=== PATIENT | male | born 1960 | race American Indian/Alaskan Native ===

== ENCOUNTER 2021-09-02 10:16 | Emergency (ER) | payer SELFPAY ==
[2021-09-02 10:49] VITALS: BP 173/104
== END 2021-09-02 11:00 | disposition left against medical advice (07) ==
LOC: ED 10:16
DX: M25.572 Pain in left ankle and joints of left foot (principal); Z53.21 Procedure and treatment not carried out due to patient leaving prior to being seen by health care provider